=== PATIENT | male | born 1985 | race Caucasian/White ===

== ENCOUNTER 2020-07-29 23:30 | Emergency (ER) | payer MEDICAID ==
--- NOTE | 2020-07-29 23:53 | EDM.PDOC ---
ED HPI GENERAL MEDICAL PROBLEM - General Chief Complaint: General Stated Complaint: MEDICAL CLEARANCE Time Seen by Provider: 07/29/20 23:39 - History of Present Illness INITIAL COMMENTS - FREE TEXT/NARRATIVE: CHIEF COMPLAINT(S): Medical Clearance HISTORY OF PRESENT ILLNESS: This is a 35-year-old man with a past medical history of hepatitis C who comes to the emergency department with a chief complaint of Medical Clearance. The patient states that they have been experiencing a headache, loss of taste of sense and smell with some body aches. He denies any chest pain, shortness of breath or cough. He states that he may have been exposed but does not know and are here for medical clearance. He denies any history of CAD, CHF, recent travel, recent surgery, prior history of DVT or PE. He states that he does have some mild headache which is bifrontal not associated with any numbness, tingling, weakness. He describes the pain as 1-2 out of 10 throbbing in nature. There is no radiation of this pain. He states that it is not exacerbated or relieved by anything. He denies any other symptoms. REVIEW OF SYSTEMS: Constitutional: Denies fever, chills. Eyes: Denies eye pain Ears, Nose, Mouth, & Throat: Denies earache Cardiovascular: Denies chest pain Respiratory: Denies shortness of breath Gastrointestinal: Denies Nausea, vomiting, diarrhea, hematochezia. Genitourinary: Denies hematuria Skin:Denies a rash MSK: Denies joint pain Neurological: Positive for headache, loss of taste and sense of smell. Denies blurred vision, numbness, tingling, weakness Psychiatric: Denies depression PAST MEDICAL HISTORY: As per history of present illness and as reviewed below otherwise noncontributory. SURGICAL HISTORY: As per history of present illness and as reviewed below otherwise noncontributory. SOCIAL HISTORY: As per history of present illness and as reviewed below otherwise noncontributory. FAMILY HISTORY: As per history of present illness and as reviewed below otherwise noncontributory. EXAMINATION OF ORGAN SYSTEMS/BODY AREAS: Constitutional: Blood pressure is 136/85, heart rate 95, respiratory rate 19 with an oxygen saturation of 97% on room air. Temperature 35.9 temporally General: Overall well-appearing man who is in no acute distress. Psychiatric: Appropriate mood and affect. Eyes: No scleral icterus or conjunctival erythema ENMT: Moist mucous membranes. No pharyngeal erythema Cardiovascular: Regular, rate, and rhythm. No gallops, murmurs, or rubs. Bilateral upper extremity pulses symmetric and intact. No peripheral edema. No JVD. Respiratory: Lungs clear to auscultation bilaterally. No wheezes, rales, or rhonchi. Gastrointestinal: Soft, non-tender, non-distended. Normoactive bowel sounds Genitourinary: No suprapubic tenderness Musculoskeletal: Normal range of motion. Skin: No lesions or abrasions. Neurological: Alert, GCS 15 strength and sensation grossly intact in upper and lower extremities bilaterally. MEDICAL DECISION MAKING AND COURSE IN THE ED WITH INTERPRETATION/REVIEW OF DIAGNOSTIC STUDIES: This is a 35-year-old male with a past medical history of hepatitis C virus who comes to the emergency department for a medical clearance who is also experiencing mild symptoms of COVID-19 infection. At this time I did discuss that I would like to obtain a Covid swab however the patient refused the swab. I did also offer Tylenol however he also refused the Tylenol. At this time I do not believe any further work-up is indicated. The patient has stable vital signs and even if the patient has Covid the patient can be quarantined in custodial for 10 days. I did recommend this and encourage the patient to take Tylenol and Motrin and to return if he has any worsening shortness of breath, cough, or chest pain. The medical clearance form was completed and they were instructed to come to the ED for any new or concerning symptoms. The patient expressed understanding and was amenable to discharge at this time. DISPOSITION: The patient was discharged in police custody in stable condition. CONDITION: Good PROCEDURES: None FINAL IMPRESSION(S)/DIAGNOSES: 1. Acute encounter for medical screening examination 2. Acute possible COVID-19 infection Nitin Birmingham M.D. - Related Data Allergies Allergy/AdvReac Type Severity Reaction Status Date / Time No Known Allergies Allergy Verified 07/29/20 23:35 Home Meds: Home Meds . [No Known Home Meds] 02/15/19 [History] Past Medical History - Infectious Disease History Infectious Disease History: Reports: Hepatitis C Social & Family History - Family History Family Medical History: No Pertinent Family History - Tobacco Use Tobacco Use Status *Q: Current Every Day Tobacco User Years of Tobacco use: 15 Packs/Tins Daily: 1 - Recreational Drug Use Recreational Drug Use: No ED ROS GENERAL - Review of Systems Review Of Systems: See Below ED EXAM, GENERAL - Physical Exam Exam: See Below Course - Vital Signs Last Recorded V/S: Last Vital Signs Temp 36.6 C 07/30/20 00:00 Pulse 95 07/30/20 00:00 Resp 16 07/30/20 00:00 BP 142/72 H 07/30/20 00:00 Pulse Ox 95 07/30/20 00:00 Departure - Departure Time of Disposition: 23:52 Disposition: Home, Self-Care 01 Condition: Fair Clinical Impression: COVID-19 - Discharge Information *PRESCRIPTION DRUG MONITORING PROGRAM REVIEWED*: No *COPY OF PRESCRIPTION DRUG MONITORING REPORT IN PATIENT JOY: No Instructions: COVID-19 Frequently Asked Questions, What You Should Know About COVID-19 to Protect Yourself and Others - [facility], 10 Things You Can Do to Manage Your COVID-19 Symptoms at Home - CDC, COVID-19: Quarantine vs. Isolation - [facility], Prevent the Spread of COVID-19 if You Are Sick - [facility] Referrals: PCP,None [Primary Care Provider] - Forms: ED Department Discharge Additional Instructions: Your evaluated today on an emergent basis. At this time your symptoms that you are describing are consistent with COVID-19. I do recommend a 10-day quarantine and to use Tylenol and Motrin for fever and pain relief. If you have any worsening shortness of breath or chest pain please return to the emergency department. Please follow-up with your primary care physician for further e valuation and treatment. [facility] [address] [place] [id number] [address] The patient is informed of any results of their evaluation and diagnostic workup and all questions are answered. They are given discharge instructions and return precautions. The patient is stable for discharge. The patient states they understand and agree with the plan and that they will return if their symptoms get worse or if they have any new concerns. The following information is given to patients seen in the emergency department who are being discharged to home. This information is to outline your options for follow-up care. We provide all patients seen in our emergency department with a follow-up referral. The need for follow-up, as well as the timing and circumstances, are variable depending upon the specifics of your emergency department visit. If you don't have a primary care physician on staff, we will provide you with a referral. We always advise you to contact your personal physician following an emergency department visit to inform them of the circumstance of the visit and for follow-up with them and/or the need for any referrals to a consulting spe cialist. The emergency department will also refer you to a specialist when appropriate. This referral assures that you have the opportunity for follow-up care with a specialist. All of these measure are taken in an effort to provide you with optimal care, which includes your follow-up. Under all circumstances we always encourage you to contact your private physician who remains a resource for coordinating your care. When calling for follow-up care, please make the office aware that this follow-up is from your recent emergency room visit. If for any reason you are refused follow-up, please contact the [facility] Emergency Department at and asked to speak to the emergency department charge nurse. Sepsis Event Note (ED) - Evaluation Sepsis Screening Result: No Definite Risk - Focused Exam Vital Signs: Vital Signs Temp Pulse Resp BP Pulse Ox 07/30/20 00:00 36.6 C 95 16 142/72 H 95 07/29/20 23:35 35.9 C L 95 19 136/85 97
== END 2020-07-30 00:01 | disposition home or self-care (01) ==
LOC: MW.ED 23:30
DX: U07.1 COVID-19 (principal); Z72.0 Tobacco use
CPT/HCPCS: 99282; 99283